=== PATIENT | female | born 2000 | race Hispanic/Latino ===

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

== ENCOUNTER 2021-06-14 22:14 | Emergency (ER) | payer OTHER ==
[2021-06-14] MEDS ORDERED: HYDROcodone/Acetaminophen 10/325 mg Tablet ONE (23:38)
[2021-06-14] MEDS ORDERED: Ondansetron ODT 4 MG TAB ONE (23:38)
[2021-06-15 11:51] LABS: SARS-CoV-2 PCR by NAA Not Detected (NotDetected)
== END 2021-06-14 23:50 | disposition home or self-care (01) ==
LOC: ERS 22:14
DX: R05 Cough (principal); Z20.822 Contact with and (suspected) exposure to COVID-19
CPT/HCPCS: 71046; Q0162; U0003; U0005